=== PATIENT | female | born 1985 | race African-American/Black ===

== ENCOUNTER 2018-04-16 14:21 | Emergency (ER) | payer SELFPAY ==
[~2018-04-16] VITALS: Ht 172.7 cm; Wt 73.0 kg
[~2018-04-16 14:21] MED LIST: AMOXICILLIN500 MG PO; AUGMENTIN875TAB PO; BACTRIM DS1 TAB PO; BENADRYL25 M1 OR; CEFTIN500 MG OR; CEPHALEXIN500 MG OR; CIPRO500 MG OR; CIPRO500 MG PO; FLEXERIL OR; MACROBID100 MG PO; NAPROSYN375 MG PO; NAPROSYN500 MG PO; NO; NO HOME MEDS; NO MEDS; PENICILLN VK500 MG OR; PENICILLN VK500 MG PO; PYRIDIUM200 MG PO; TORADOL OR; TRAMADOL HCL50 MG PO; ULTRAM50 M1 PO; ULTRAM50 MG OR; ULTRAM50 MG PO; ZOFRAN ODT4 MG OR; ZOFRAN ODT4 MG SL
[2018-04-16 15:16] LABS: HEMATOCRIT 41.9 % (37.0-47.0); HEMOGLOBIN 13.8 g/dl (12.0-16.0); IMMATURE GRANULOCYTES 0.3 % (0.0-5.0); MEAN CORPUSCULAR HGB 30.5 pG CALC (26.0-32.0); MEAN CORPUSCULAR HGB CONC 32.9 g/L CALC (32.0-36.0); NEUT# 5.55 thou/uL (2.00-7.15); RED BLOOD COUNT 4.52 mill/uL (4.20-5.60); RED CELL DISTRI WIDTH 14.6 % (11.5-15.5)
[2018-04-16 15:18] LABS: MEAN CELL VOLUME 92.7 fL CALC (80.0-100.0)
[2018-04-16 15:19] LABS: URINE BILIRUBIN - DIPSTICK NEGATIVE (NEGATIVE); URINE BLOOD DIPSTICK SMALL (NEGATIVE); URINE COLOR YELLOW; URINE GLUCOSE - DIPSTICK NEGATIVE (NEGATIVE); URINE KETONE NEGATIVE (NEGATIVE); URINE LEUK ESTERASE TRACE (NEGATIVE); URINE PROTEIN - DIPSTICK NEGATIVE (NEG-TRACE); URINE SPECIFIC GRAVITY >=1.030; URINE UROBILINOGEN - DIPSTICK 0.2 E.U./dL (0.2)
[2018-04-16 15:22] LABS: URINE CLARITY HAZY; URINE NITRITE - DIPSTICK POSITIVE (Negative)
[2018-04-16 15:32] LABS: URINE BACTERIA RARE hpf; URINE SQUAMOUS EPITHELIAL CELL FEW EPI/hpf (0-FEW)
[2018-04-16 15:35] LABS: ALBUMIN 4.1 g/dL (3.2-5.0); ALKALINE PHOSPHATASE 66 u/l (38-126); ANION GAP 12 (6-22 (CALC)); BILIRUBIN, TOTAL 0.5 mg/dL (0.0-1.4); BUN 10 mg/dL (7-17); BUN/CREATININE RATIO 12 (12-20 (CALC)); CARBON DIOXIDE 27 mmol/l (22-30); CHLORIDE 107 mmol/l (95-108); CREATININE 0.8 mg/dL (0.5-1.0); GFR > 60 ML/MIN (>=60 (CALC)); GFR FOR AFR.AMER. > 60 ML/MIN (>=60 (CALC)); LIPASE 85 u/l (23-300); POTASSIUM 4.3 mmol/l (3.5-5.1); SGOT/AST 25 u/l (14-36); SODIUM 142 mmol/l (137-146); TOTAL PROTEIN 7.2 g/dL (6.3-8.2)
[2018-04-16] MEDS ORDERED: ONDANSETRON4 MG PO (16:03)
[2018-04-16] MEDS ORDERED: CEPHALEXIN500 M1 PO (16:03)
[2018-04-16 16:17] VITALS: BP 112/60
== END 2018-04-16 16:20 | disposition home or self-care (01) | DRG 690 ==
LOC: ED 14:21
PROVIDERS: Family Medicine
DX: N39.0 Urinary tract infection, site not specified (principal); K52.9 Noninfective gastroenteritis and colitis, unspecified; F17.200 Nicotine dependence, unspecified, uncomplicated

== ENCOUNTER 2020-03-06 13:59 | Emergency (ER) | payer SELFPAY ==
[~2020-03-06] VITALS: Ht 172.7 cm; Wt 60.0 kg
[~2020-03-06 13:59] MED LIST changes: +CEPHALEXIN500 M1 PO; +ONDANSETRON4 MG PO
[2020-03-06] MEDS ORDERED: ALEVE ARTHRITI220 MG PO (14:10)
[2020-03-06] MEDS ORDERED: ACETAMIN500 M2 PO (14:11)
[2020-03-06] MEDS ORDERED: HYDROCO/APAP1 TA9 PO (14:34)
[2020-03-06] MEDS ORDERED: CLEOCIN300 MG PO (14:34)
[2020-03-06 14:47] VITALS: BP 131/75
== END 2020-03-06 14:52 | disposition home or self-care (01) | DRG 159 ==
LOC: ED 13:59
DX: K04.7 Periapical abscess without sinus (principal); K02.9 Dental caries, unspecified; F17.210 Nicotine dependence, cigarettes, uncomplicated

== ENCOUNTER 2020-10-05 15:33 | Emergency (ER) | payer SELFPAY ==
[~2020-10-05] VITALS: Ht 172.7 cm; Wt 83.6 kg
[~2020-10-05 15:33] MED LIST changes: +ACETAMIN500 M2 PO; +ALEVE ARTHRITI220 MG PO; +CLEOCIN300 MG PO; +HYDROCO/APAP1 TA9 PO
[2020-10-05 17:46] LABS: URINE BILIRUBIN - DIPSTICK NEGATIVE (NEGATIVE); URINE BLOOD DIPSTICK TRACE-INTACT (NEGATIVE); URINE COLOR YELLOW; URINE GLUCOSE - DIPSTICK NEGATIVE (NEGATIVE); URINE KETONE NEGATIVE (NEGATIVE); URINE LEUK ESTERASE NEGATIVE (NEGATIVE); URINE PROTEIN - DIPSTICK NEGATIVE (NEG-TRACE); URINE SPECIFIC GRAVITY 1.025; URINE UROBILINOGEN - DIPSTICK 0.2 E.U./dL (0.2)
[2020-10-05 17:47] LABS: URINE NITRITE - DIPSTICK NEGATIVE (Negative)
[2020-10-05 18:24] LABS: HEMATOCRIT 43.1 % (37.0-47.0); HEMOGLOBIN 13.6 g/dl (12.0-16.0); IMMATURE GRANULOCYTES 0.3 % (0.0-5.0); MEAN CELL VOLUME 90.2 fL CALC (80.0-100.0); MEAN CORPUSCULAR HGB 28.5 pG CALC (26.0-32.0); MEAN CORPUSCULAR HGB CONC 31.6 g/dL CAL (32.0-36.0); NEUT# 4.32 thou/uL (2.00-7.15); RED BLOOD COUNT 4.78 mill/uL (4.20-5.60); RED CELL DISTRI WIDTH 14.6 % (11.5-15.5)
[2020-10-05 18:42] LABS: ALBUMIN 4.5 g/dL (3.2-5.0); ALKALINE PHOSPHATASE 75 u/l (38-126); ANION GAP 10 (6-22 (CALC)); BILIRUBIN, TOTAL 0.6 mg/dL (0.0-1.4); BUN 7 mg/dL (7-17); BUN/CREATININE RATIO 8 (12-20 (CALC)); CARBON DIOXIDE 26 mmol/l (22-30); CHLORIDE 104 mmol/l (95-108); CREATININE 0.9 mg/dL (0.5-1.0); GFR > 60 ML/MIN (>=60 (CALC)); GFR FOR AFR.AMER. > 60 ML/MIN (>=60 (CALC)); LIPASE 184 u/l (23-300); POTASSIUM 4.7 mmol/l (3.5-5.1); SGOT/AST 27 u/l (14-36); SODIUM 136 mmol/l (137-146); TOTAL PROTEIN 8.1 g/dL (6.3-8.2)
[2020-10-05] MEDS ORDERED: PEPCID20 MG PO (20:26)
[2020-10-05 20:36] VITALS: BP 157/84
== END 2020-10-05 20:40 | disposition home or self-care (01) | DRG 392 ==
LOC: ED 15:33
DX: K29.70 Gastritis, unspecified, without bleeding (principal); F17.210 Nicotine dependence, cigarettes, uncomplicated
CPT/HCPCS: Q9967

== ENCOUNTER 2020-10-09 03:49 | Emergency (ER) | payer OTHER ==
[~2020-10-09] VITALS: Ht 172.7 cm; Wt 70.0 kg
[~2020-10-09 03:49] MED LIST changes: +PEPCID20 MG PO
[2020-10-09] MEDS ORDERED: KEFLEX500 M1 PO (04:12)
[2020-10-09 04:25] VITALS: BP 145/78
== END 2020-10-09 04:25 | disposition home or self-care (01) | DRG 605 ==
LOC: ED 03:49
PROC: 0HQMXZZ Repair Right Foot Skin, External Approach (ICD-10-PCS; principal; 2020-10-09)
DX: S91.011A Laceration without foreign body, right ankle, initial encounter (principal); F17.200 Nicotine dependence, unspecified, uncomplicated; V89.2XXA Person injured in unspecified motor-vehicle accident, traffic, initial encounter

== ENCOUNTER 2020-10-21 | Emergency (ER) | payer SELFPAY ==
[~2020-10-21] MED LIST changes: +KEFLEX500 M1 PO
[2020-10-21] MEDS ORDERED: KEFLEX500 MG PO (18:14)
[2020-10-21] MEDS ORDERED: BACTRIM DS1 TAB PO (18:14)
== END 2020-10-21 18:30 | disposition home or self-care (01) | DRG 605 ==
DX: S91.011A Laceration without foreign body, right ankle, initial encounter (principal); L08.9 Local infection of the skin and subcutaneous tissue, unspecified; F17.200 Nicotine dependence, unspecified, uncomplicated; X58.XXXA Exposure to other specified factors, initial encounter

== ENCOUNTER 2020-10-22 | Emergency (ER) | payer SELFPAY ==
[~2020-10-22] MED LIST changes: +KEFLEX500 MG PO
== END 2020-10-22 17:46 | disposition home or self-care (01) | DRG 950 ==
DX: S91.301D Unspecified open wound, right foot, subsequent encounter (principal); L08.9 Local infection of the skin and subcutaneous tissue, unspecified; F17.210 Nicotine dependence, cigarettes, uncomplicated; X58.XXXD Exposure to other specified factors, subsequent encounter

== ENCOUNTER 2021-10-09 15:50 | Emergency (ER) | payer SELFPAY ==
[~2021-10-09] VITALS: Ht 172.7 cm; Wt 72.7 kg
[2021-10-09 17:26] VITALS: BP 117/78
[2021-10-09 17:30] VITALS: BP 116/79
[2021-10-09 18:01] VITALS: BP 110/70
[2021-10-09 18:32] VITALS: BP 131/84
== END 2021-10-09 18:36 | disposition left against medical advice (07) | DRG 392 ==
LOC: ED 15:50
DX: R11.10 Vomiting, unspecified (principal); F17.210 Nicotine dependence, cigarettes, uncomplicated; Z91.19 Patient's noncompliance with other medical treatment and regimen

== ENCOUNTER 2021-11-07 07:41 | Emergency (ER) | payer SELFPAY ==
[~2021-11-07] VITALS: Ht 172.7 cm; Wt 74.0 kg
[2021-11-07] MEDS ORDERED: AMOXICILLIN500 MG PO (08:32)
[2021-11-07] MEDS ORDERED: CLARITIN10 M2 PO (08:32)
[2021-11-07 08:35] VITALS: BP 123/81
== END 2021-11-07 08:33 | disposition home or self-care (01) | DRG 153 ==
LOC: ED 07:41
DX: J06.9 Acute upper respiratory infection, unspecified (principal); F17.210 Nicotine dependence, cigarettes, uncomplicated; Z20.822 Contact with and (suspected) exposure to COVID-19

== ENCOUNTER 2021-11-26 19:50 | Emergency (ER) | payer SELFPAY ==
[~2021-11-26] VITALS: Ht 172.7 cm; Wt 74.4 kg
[~2021-11-26 19:50] MED LIST changes: +CLARITIN10 M2 PO
[2021-11-26 20:00] VITALS: BP 132/91
[2021-11-26 20:15] VITALS: BP 138/86
[2021-11-26] MEDS ORDERED: AMOXICILLIN875 MG PO (20:44)
[2021-11-26] MEDS ORDERED: FLOXIN OTIC0.3 % AD (20:44)
[2021-11-26] MEDS ORDERED: ULTRAM50 M1 PO (20:45)
[2021-11-26 21:00] VITALS: BP 138/86
== END 2021-11-26 21:10 | disposition home or self-care (01) | DRG 153 ==
LOC: ED 19:50
DX: H66.91 Otitis media, unspecified, right ear (principal); J02.9 Acute pharyngitis, unspecified; F17.210 Nicotine dependence, cigarettes, uncomplicated

== ENCOUNTER 2021-12-18 21:52 | Emergency (ER) | payer SELFPAY ==
[~2021-12-18] VITALS: Ht 172.7 cm; Wt 74.0 kg
[~2021-12-18 21:52] MED LIST changes: +AMOXICILLIN875 MG PO; +FLOXIN OTIC0.3 % AD
[2021-12-18 22:54] LABS: HEMATOCRIT 40.4 % (37.0-47.0); HEMOGLOBIN 13.1 g/dl (12.0-16.0); IMMATURE GRANULOCYTES 0.1 % (0.0-5.0); MEAN CELL VOLUME 92.2 fL CALC (80.0-100.0); MEAN CORPUSCULAR HGB 29.9 pG CALC (26.0-32.0); MEAN CORPUSCULAR HGB CONC 32.4 g/dL CAL (32.0-36.0); NEUT# 3.56 thou/uL (2.00-7.15); RED BLOOD COUNT 4.38 mill/uL (4.20-5.60); RED CELL DISTRI WIDTH 13.8 % (11.5-15.5)
[2021-12-18 23:40] VITALS: BP 119/87
== END 2021-12-18 23:46 | disposition home or self-care (01) | DRG 153 ==
LOC: ED 21:52
PROVIDERS: Family Medicine
DX: J06.9 Acute upper respiratory infection, unspecified (principal); F17.210 Nicotine dependence, cigarettes, uncomplicated; Z20.822 Contact with and (suspected) exposure to COVID-19

== ENCOUNTER 2022-01-13 14:19 | Emergency (ER) | payer SELFPAY ==
[~2022-01-13] VITALS: Ht 172.7 cm; Wt 63.6 kg
[2022-01-13 15:00] LABS: URINE BILIRUBIN - DIPSTICK NEGATIVE (NEGATIVE); URINE BLOOD DIPSTICK TRACE-INTACT (NEGATIVE); URINE COLOR YELLOW; URINE GLUCOSE - DIPSTICK NEGATIVE (NEGATIVE); URINE KETONE TRACE mg/dL (NEGATIVE); URINE PROTEIN - DIPSTICK TRACE mg/dL (NEG-TRACE); URINE SPECIFIC GRAVITY 1.015
[2022-01-13 15:00] LABS: HEMOGLOBIN 14.9 g/dl (12.0-16.0); MEAN CELL VOLUME 89.1 fL CALC (80.0-100.0); MEAN CORPUSCULAR HGB 29.5 pG CALC (26.0-32.0); MEAN CORPUSCULAR HGB CONC 33.1 g/dL CAL (32.0-36.0); NEUT# 2.85 thou/uL (2.00-7.15); RED BLOOD COUNT 5.05 mill/uL (4.20-5.60); RED CELL DISTRI WIDTH 13.5 % (11.5-15.5)
[2022-01-13 15:02] LABS: URINE LEUK ESTERASE SMALL (NEGATIVE); URINE NITRITE - DIPSTICK POSITIVE (Negative)
[2022-01-13 15:14] LABS: URINE BACTERIA MANY hpf; URINE SQUAMOUS EPITHELIAL CELL MODERATE EPI/hpf (0-FEW); URINE TRIP PHOS CRYSTALS MANY lpf
[2022-01-13 15:15] LABS: ALBUMIN 4.3 g/dL (3.2-5.0); ALKALINE PHOSPHATASE 82 u/l (38-126); ANION GAP 11 (6-22 (CALC)); BILIRUBIN, TOTAL 0.3 mg/dL (0.0-1.4); BUN 9 mg/dL (7-17); BUN/CREATININE RATIO 11 (12-20 (CALC)); CARBON DIOXIDE 23 mmol/l (22-30); CHLORIDE 107 mmol/l (95-108); CREATININE 0.8 mg/dL (0.5-1.0); GFR FOR AFR.AMER. > 60 ML/MIN (>=60 (CALC)); GFR OTHER RACES > 60 ML/MIN (>=60 (CALC)); LIPASE 238 u/l (23-300); POTASSIUM 3.6 mmol/l (3.5-5.1); SGOT/AST 17 u/l (14-36); SODIUM 137 mmol/l (137-146); TOTAL PROTEIN 7.5 g/dL (6.3-8.2)
[2022-01-13] MEDS ORDERED: NAPROXEN500 MG PO (17:29)
[2022-01-13] MEDS ORDERED: KEFLEX500 MG PO (17:29)
[2022-01-13] MEDS ORDERED: PROTONIX40 M2 PO (17:29)
[2022-01-13 18:03] VITALS: BP 123/75
== END 2022-01-13 18:10 | disposition home or self-care (01) | DRG 690 ==
LOC: ED 14:19
PROVIDERS: Nurse Practitioner
DX: N39.0 Urinary tract infection, site not specified (principal); B96.4 Proteus (mirabilis) (morganii) as the cause of diseases classified elsewhere; K29.70 Gastritis, unspecified, without bleeding; F17.200 Nicotine dependence, unspecified, uncomplicated
CPT/HCPCS: Q9967; S0164

== ENCOUNTER 2022-01-27 02:37 | Emergency (ER) | payer SELFPAY ==
[~2022-01-27] VITALS: Ht 172.7 cm; Wt 76.0 kg
[~2022-01-27 02:37] MED LIST changes: +NAPROXEN500 MG PO; +PROTONIX40 M2 PO
[2022-01-27 02:43] VITALS: BP 136/90
[2022-01-27 02:45] VITALS: BP 129/81
[2022-01-27 03:01] VITALS: BP 142/89
[2022-01-27 03:12] LABS: HEMATOCRIT 40.2 % (37.0-47.0); HEMOGLOBIN 13.7 g/dl (12.0-16.0); IMMATURE GRANULOCYTES 0.6 % (0.0-5.0); MEAN CELL VOLUME 87.8 fL CALC (80.0-100.0); MEAN CORPUSCULAR HGB 29.9 pG CALC (26.0-32.0); MEAN CORPUSCULAR HGB CONC 34.1 g/dL CAL (32.0-36.0); NEUT# 6.58 thou/uL (2.00-7.15); RED BLOOD COUNT 4.58 mill/uL (4.20-5.60); RED CELL DISTRI WIDTH 13.6 % (11.5-15.5)
[2022-01-27 03:31] LABS: ALKALINE PHOSPHATASE 90 u/l (38-126); ANION GAP 11 (6-22 (CALC)); BILIRUBIN, TOTAL 0.2 mg/dL (0.0-1.4); BUN 6 mg/dL (7-17); BUN/CREATININE RATIO 7 (12-20 (CALC)); CARBON DIOXIDE 22 mmol/l (22-30); CHLORIDE 107 mmol/l (95-108); CREATININE 0.8 mg/dL (0.5-1.0); ETHYL ALCOHOL 0 mg/dl (0-30); GFR FOR AFR.AMER. > 60 ML/MIN (>=60 (CALC)); GFR OTHER RACES > 60 ML/MIN (>=60 (CALC)); MAGNESIUM 1.6 mg/dL (1.6-2.3); POTASSIUM 3.5 mmol/l (3.5-5.1); SGOT/AST 19 u/l (14-36); SODIUM 136 mmol/l (137-146)
[2022-01-27 04:58] LABS: URINE BILIRUBIN - DIPSTICK NEGATIVE (NEGATIVE); URINE BLOOD DIPSTICK MODERATE (NEGATIVE); URINE COLOR YELLOW; URINE GLUCOSE - DIPSTICK NEGATIVE (NEGATIVE); URINE KETONE NEGATIVE (NEGATIVE); URINE PROTEIN - DIPSTICK NEGATIVE (NEG-TRACE); URINE SPECIFIC GRAVITY 1.015; URINE UROBILINOGEN - DIPSTICK 0.2 E.U./dL (0.2)
[2022-01-27 04:59] LABS: URINE LEUK ESTERASE SMALL (NEGATIVE); URINE NITRITE - DIPSTICK NEGATIVE (Negative)
[2022-01-27 05:09] LABS: URINE BACTERIA MODERATE hpf; URINE SQUAMOUS EPITHELIAL CELL FEW EPI/hpf (0-FEW)
[2022-01-27] MEDS ORDERED: BACTRIM DS1 TAB PO (05:34)
[2022-01-27 05:36] VITALS: BP 142/89
== END 2022-01-27 05:50 | disposition home or self-care (01) | DRG 103 ==
LOC: ED 02:37
PROVIDERS: Family Medicine
DX: R51.9 Headache, unspecified (principal); N39.0 Urinary tract infection, site not specified; F19.10 Other psychoactive substance abuse, uncomplicated; B96.4 Proteus (mirabilis) (morganii) as the cause of diseases classified elsewhere; F17.200 Nicotine dependence, unspecified, uncomplicated

== ENCOUNTER 2022-02-25 19:25 | Emergency (ER) | payer SELFPAY ==
[~2022-02-25] VITALS: Ht 172.7 cm; Wt 70.0 kg
[2022-02-25 19:37] VITALS: BP 124/82
[2022-02-25 19:45] VITALS: BP 126/84
[2022-02-25 20:00] VITALS: BP 119/83
[2022-02-25 20:07] LABS: HEMOGLOBIN 14.2 g/dl (12.0-16.0); IMMATURE GRANULOCYTES 0.1 % (0.0-5.0); MEAN CORPUSCULAR HGB CONC 32.3 g/dL CAL (32.0-36.0); NEUT# 2.74 thou/uL (2.00-7.15); RED BLOOD COUNT 4.89 mill/uL (4.20-5.60); RED CELL DISTRI WIDTH 15.3 % (11.5-15.5)
[2022-02-25 20:15] VITALS: BP 106/81
[2022-02-25] MEDS ORDERED: AMOXICILLIN500 MG PO (20:27)
[2022-02-25 20:30] VITALS: BP 106/81
== END 2022-02-25 20:40 | disposition home or self-care (01) | DRG 153 ==
LOC: ED 19:25
PROVIDERS: Family Medicine
DX: J06.9 Acute upper respiratory infection, unspecified (principal); K04.7 Periapical abscess without sinus; F17.200 Nicotine dependence, unspecified, uncomplicated; Z20.822 Contact with and (suspected) exposure to COVID-19

== ENCOUNTER 2022-03-12 19:36 | Emergency (ER) | payer SELFPAY ==
[~2022-03-12] VITALS: Ht 172.7 cm; Wt 72.7 kg
[2022-03-12 20:27] LABS: HEMATOCRIT 40.3 % (37.0-47.0); HEMOGLOBIN 13.5 g/dl (12.0-16.0); IMMATURE GRANULOCYTES 0.2 % (0.0-5.0); MEAN CELL VOLUME 87.6 fL CALC (80.0-100.0); MEAN CORPUSCULAR HGB 29.3 pG CALC (26.0-32.0); MEAN CORPUSCULAR HGB CONC 33.5 g/dL CAL (32.0-36.0); NEUT# 4.39 thou/uL (2.00-7.15); RED BLOOD COUNT 4.6 mill/uL (4.20-5.60)
[2022-03-12 20:45] VITALS: BP 107/64
[2022-03-12 21:19] VITALS: BP 107/64
== END 2022-03-12 21:25 | disposition home or self-care (01) | DRG 153 ==
LOC: ED 19:36
PROVIDERS: Family Medicine
DX: J06.9 Acute upper respiratory infection, unspecified (principal); F17.200 Nicotine dependence, unspecified, uncomplicated; Z20.822 Contact with and (suspected) exposure to COVID-19

== ENCOUNTER 2022-03-29 21:14 | Emergency (ER) | payer SELFPAY ==
[~2022-03-29] VITALS: Ht 172.7 cm; Wt 72.7 kg
[2022-03-29 21:20] VITALS: BP 114/84
[2022-03-29 21:30] VITALS: BP 126/83
[2022-03-29] MEDS ORDERED: AMOXICILLIN500 MG PO (21:36)
[2022-03-29] MEDS ORDERED: ULTRAM50 M1 PO (21:36)
[2022-03-29 21:49] VITALS: BP 126/83
== END 2022-03-29 21:49 | disposition home or self-care (01) | DRG 159 ==
LOC: ED 21:14
DX: K04.7 Periapical abscess without sinus (principal); F17.210 Nicotine dependence, cigarettes, uncomplicated

== ENCOUNTER 2022-04-30 22:15 | Emergency (ER) | payer SELFPAY ==
[~2022-04-30] VITALS: Ht 172.7 cm; Wt 72.0 kg
[2022-04-30 23:17] VITALS: BP 113/70
[2022-04-30 23:30] VITALS: BP 102/59
[2022-04-30 23:45] VITALS: BP 88/45
[2022-04-30 23:47] VITALS: BP 106/64
[2022-04-30] MEDS ORDERED: KEFLEX500 MG PO (23:50)
[2022-04-30 23:58] VITALS: BP 106/64
== END 2022-05-01 00:09 | disposition home or self-care (01) | DRG 605 ==
LOC: ED 22:15
DX: S81.812A Laceration without foreign body, left lower leg, initial encounter (principal); L03.116 Cellulitis of left lower limb; W45.8XXA Other foreign body or object entering through skin, initial encounter

== ENCOUNTER 2024-06-13 11:01 | Emergency (ER) | payer SELFPAY ==
[~2024-06-13] VITALS: Ht 172.7 cm; Wt 68.0 kg
[2024-06-13] VITALS (9 sets, daily range): BP systolic 110–140; BP diastolic 67–83
[~2024-06-13 11:01] MED LIST changes: +CLINDAMYCIN HC150 MG PO
[2024-06-13] MEDS ORDERED: AMPICILLIN & SULBACTAM SODIUM 3 GM in SODIUM CHLORIDE 0.9% 100 ML IV ONE (13:20)
[2024-06-13] MEDS ORDERED: ISOVUE-300 (Iopamidol) 100 ML SDV IV ONE (13:20)
[2024-06-13] MEDS ORDERED: KETOROLAC TROMETHAMINE 30 MG/ML SDV IV ONE (13:20)
[2024-06-13] MEDS ORDERED: VANCOMYCIN HCL 1 GM in SODIUM CHLORIDE 0.9% 250 ML IV ONE (13:20)
[2024-06-13 13:45] LABS: BASO% 0.2 % (0-3); EOS% 0.5 % (0-8); HEMATOCRIT 45.9 % (37.0-47.0); HEMOGLOBIN 14.9 g/dl (12.0-16.0); IMMATURE GRANULOCYTES 0.1 % (0.0-5.0); LYMPH% 22.5 % (15-41); MEAN CELL VOLUME 89.6 fL CALC (80.0-100.0); MEAN CORPUSCULAR HGB 29.1 pG CALC (26.0-32.0); MEAN CORPUSCULAR HGB CONC 32.5 g/dL CAL (32.0-36.0); MONO% 8.5 % (2-13); NEUT# 6.8 thou/uL (2.00-7.15); NEUT% 68.2 % (42-76); RED BLOOD COUNT 5.12 mill/uL (4.20-5.60); RED CELL DISTRI WIDTH 14.2 % (11.5-15.5)
[2024-06-13 14:42] LABS: ALBUMIN 4.2 g/dL (3.2-5.0); CREATININE 0.7 mg/dL (0.5-1.0); TOTAL PROTEIN 7.3 g/dL (6.3-8.2)
[2024-06-13 14:44] LABS: BILIRUBIN, TOTAL 0.5 mg/dL (0.02-1.3); POTASSIUM 5.2 mmol/l (3.5-5.1)
[2024-06-13] MEDS ORDERED: MORPHINE SULFATE 4 MG/ML VIAL IV ONE (16:00)
== END 2024-06-13 16:55 | disposition short-term general hospital (02) | DRG 603 ==
LOC: ED 11:01
PROVIDERS: Family Medicine
DX: L02.01 Cutaneous abscess of face (principal); F17.200 Nicotine dependence, unspecified, uncomplicated
CPT/HCPCS: Q9967

== ENCOUNTER 2024-09-16 10:49 | Emergency (ER) | payer SELFPAY ==
[~2024-09-16] VITALS: Ht 172.7 cm; Wt 77.0 kg
[2024-09-16 10:53] VITALS: BP 132/80
[2024-09-16 11:00] VITALS: BP 122/78
[2024-09-16 11:15] VITALS: BP 121/71
[2024-09-16 11:30] VITALS: BP 119/76
[2024-09-16 11:46] VITALS: BP 117/75
[2024-09-16 12:00] VITALS: BP 102/73
== END 2024-09-16 12:11 | disposition home or self-care (01) | DRG 563 ==
LOC: ED 10:49
DX: S43.101A Unspecified dislocation of right acromioclavicular joint, initial encounter (principal); F17.200 Nicotine dependence, unspecified, uncomplicated; W18.30XA Fall on same level, unspecified, initial encounter